=== PATIENT | female | born 1970 | race Caucasian/White ===

== ENCOUNTER 2023-03-16 22:47 | Emergency (ER) | payer OTHER, SELFPAY ==
[2023-03-16 22:53] VITALS: BP 126/80
[2023-03-16 23:19] LABS: % Basophils 0.5 % (0-2); % Eosinophils 0.7 % (0-6); % Immature Granulocytes 0.2 % (0-0.5); % Lymphocytes 42.5 % (20.5-51.1); % Neutrophils 49.1 % (42.2-75.2); Absolute Basophils 0.1 10^3/uL (0-0.2); Absolute Eosinophils 0.1 10^3/uL (0-0.7); Absolute Monocytes 0.7 10^3/uL (0.1-0.6); Absolute Neutrophils 4.6 10^3/uL (1.4-6.5); Hematocrit 37.9 % (37.0-47.0); Hemoglobin 13.3 g/dL (12.0-16.0); Mean Corp Hgb Conc. 35.1 g/dL (33.0-37.0); Mean Corpuscular Hgb 31.1 pg (27.0-31.0); Mean Corpuscular Volume 88.6 fL (81.0-99.0); Mean Platelet Volume 10.5 fL (7.4-10.4); Nucleated Red Blood Cells % 0 %; Platelet Count 260 10^3/uL (130-400); Red Blood Cell Count 4.28 10^6/uL (4.20-5.40); Red Cell Dist. Width 11.9 % (11.5-14.5); White Blood Cell Count 9.4 10^3/uL (4.8-10.8)
[2023-03-16 23:31] LABS: HCG, Serum Qualitative Screen Negative
[2023-03-16 23:37] LABS: ALT (SGPT) 14 U/L (0-35); AST (SGOT) 21 U/L (14-36); Albumin 4.5 g/dl (3.5-5.0); Alkaline Phosphatase 88 U/L (38-126); Blood Urea Nitrogen 13 mg/dl (7-17); Calcium 9.5 mg/dl (8.4-10.2); Carbon Dioxide 31 mmol/L (22-30); Chloride 102 mmol/L (98-107); Glucose 121 mg/dl (70-99); Potassium 3.8 mmol/L (3.5-5.1); Sodium 136 mmol/L (135-145); Total Bilirubin 0.7 mg/dl (0.2-1.3); Total Protein 7.3 g/dl (6.3-8.2); eGFR > 60.00
[2023-03-16 23:43] LABS: Troponin I < 0.012 ng/ml
[2023-03-17 02:37] VITALS: BP 116/75
[2023-03-17 02:43] VITALS: BMI 27.3
[2023-03-17 03:00] VITALS: BP 111/79
--- NOTE | 2023-03-17 03:12 | ED.GENMED ---
History of Present Illness
General
Chief Complaint: Blood Pressure Problem
Source: patient
Exam Limitations: none
Time Seen by Provider: 03/17/23 02:58
Travel History
Have you had any contact with someone who has COVID-19?: No
Do you have any symptoms of coronavirus? Fever > 100 degrees, chills, cough, shortness of breath, sore throat, loss of taste or smell, muscle aches, or headache?: No
History of Present Illness
History of Present Illness:
This is a 52 year old female that comes in with multiple complaints. States that yesterday she felt sick. Sate that the room was swaying. States that they took her BP and it was 77/55. Patient then had some water and it came up to 120/77. States
that today her BP was 150/100. States that she was feeling off balance and nauseated. Sates that she did vomit once yesterday. Denies any fever, chills, chest pain, SOB, abd pain, diarrhea, headache, urinary burning.
Past History
Past History
ED Past Medical History: Other (Overactive bladder); Negative Asthma, HTN, Hypercholesterolemia or NIDDM
ED Past Surgical History: None
Social History
Tobacco: Non-smoker
Alcohol: None
Personal:
Living: with family
Review of Systems
Review of Systems
All Other Systems: ROS reviewed and negative except as documented in HPI and ROS
Constitutional: Reports no symptoms; Denies fever or chills
EENT: Reports no symptoms
Respiratory: Reports no symptoms; Denies cough or trouble breathing
Cardiac: Denies chest pain
ABD/GI: Reports nausea and vomiting (Once yesterday); Denies abdominal pain or diarrhea
: Reports no symptoms; Denies dysuria, frequency or urgency
Musculoskeletal: Reports no symptoms
Skin: Reports no symptoms
Neurological: Reports dizzy (Feels unbalanced); Denies headache
Psychiatric: Reports no symptoms
Phy Exam
General Physical Exam
General Presentation: well appearing and no apparent distress
General age: appears stated age
General Skin: warm and dry
General Habitus: normal
General Mental: alert
General Hydration: dry mucous membranes
ENT Exam
ENT Exam: TM's normal, pharynx normal and neck supple
Eye Exam
Eye Exam: EOMI
Cardiovascular Exam
Cardiovascular Exam: regular rate/rhythm, no edema, no murmur and normal peripheral pulses
Pulmonary Exam
Pulmonary Exam: lungs clear, no respiratory distress, no rales, chest non tender, no crackles, no rhonchi, no wheezing and no cough
Gastrointestinal Exam
Gastrointestinal Exam: normal bowel sounds, non tender, soft, no organomegaly, no pulsatile mass and non distended
Musculoskeletal Exam
Musculoskeletal Exam: full ROM and no edema
Skin Exam
Skin Exam: warm/dry, no rash and no petechia
Psychiatric Exam
Psychiatric Exam: normal mood/affect
Course
Orders/Labs/Results
Orders:
Orders
03/16/23 22:58
Electrocardiogram (*1) Urgent
Reason for Study: Vertigo / Dizzy
EKG- Treatment ONCE
Test Result ONCE
03/16/23 23:10
CMP [Comprehensive Metabolic Panel] Urgent
Complete Blood Count/With Diff Urgent
HCG, Serum Qualitative Screen Urgent
Troponin I Urgent
03/17/23 03:10
CT Head W/o Iv Contrast Urgent
Comment:
Reason For Exam: Unbalanced,
Orthostatic VS- Treatment ONCE
0.9% Sodium Chloride 1000 ml [Nss] 1,000 ml IV BOLUS
Abnormal Lab Results
03/16/23
23:10
MCH 31.1 H pg
(27.0-31.0)
MPV 10.5 H fL
(7.4-10.4)
Absolute Lymphs (auto) 4.0 H 10^3/uL
(1.2-3.4)
Absolute Monos (auto) 0.7 H 10^3/uL
(0.1-0.6)
Carbon Dioxide 31 H mmol/L
(22-30)
Glucose 121 H mg/dl
(70-99)
03/16/23 23:10
03/16/23 23:10
Glucose nonfasting. Troponin <0.012, HCG negative
Vital Signs
Initial and Last Documented VS:
Initial Vital Signs
Temp Pulse Resp BP Pulse Ox
97.8 F 74 18 126/80 98
03/16/23 22:53 03/16/23 22:53 03/16/23 22:53 03/16/23 22:53 03/16/23 22:53
Last Documented Vital Signs
Temp Pulse Resp BP Pulse Ox
97.8 F 65 15 111/79 97
03/16/23 22:53 03/17/23 03:15 03/17/23 03:15 03/17/23 03:00 03/17/23 03:15
MDM/Problems Addressed
Differential Diagnosis Includes:
Dehydration.
MDM/Problems Addressed:
This is a 52 year old female that comes in with c/o her BP going up and down and feeling unbalanced. States that this started yesterday.
Will check labs. Orthostatic vitals and get CT of head. Will give IV fluids.
Back into see patient. Patient states that she is feeling better. Explained that her blood work is normal along with the CT of her head. This may have been a combination of being upset over her brothers , Dehydrated and not eating. Explained
that her BP has been normal here. Patient to follow up with the family doctor. Patient to return with any concerns.
Chronic conditions affecting care:
NA
Acute Exacerbation and/or Progression of Chronic Illness:
NA
*Radiology
Radiology exam reviewed: radiology read reviewed (CT head night hawk- No hemorrhage or other acute intracranial abnormality. )
*Pulse Oximetry
Patient hypoxic: no
*EKG
Interpreted by ED Provider?: Yes
Heart Rate: 68
Rate: normal
Rhythm: sinus
[place]: normal axis
Interval: normal interval
QRS Pattern: normal QRS
Ischemia: no ischemia
*[employer] Interpretation
Rate: normal
Heart Rate: 64
Rhythm: sinus
*Critical Care Note
Total Time (30-74mins, 75-104mins- exclusive of procedures): Not Applicable
ED Attending Note
-
Portions of this chart may have been created with voice recognition software.� Occasional wrong word or��sound alike� substitutions may have occurred due to the inherent limitations of voice recognition software.
Discharge Plan
Departure
Patient Disposition: Home (Routine Discharge)
Date of Disposition: 03/17/23
Time of Disposition: 05:06
Patient with high blood pressure during this ER visit?: No
Condition: Good
Covid-19: Not Applicable
Discharge Problem:
Dehydration, Lightheadedness
Instructions: Dehydration, Adult (DC), Dizziness, Adult ED
Referrals:
PRIVATE,PHYSICIAN [Family Provider] -
Activity Restrictions/Additional Instructions:
As discussed, your blood work was normal along with the CT of the head. You may have been dehydrated and it was just to early to show up in the blood work. Please increase your water intake to 8-8oz glasses daily. Please eat a well balanced diet.
Follow up with the family doctor for recheck. IF YOU HAVE INCREASED DIZZINESS, OR YOU HAVE ANY OTHER CONCERNS PLEASE RETURN TO THE EMERGENCY ROOM
Interventions
Interventions:
*Risk Screen - Suicide Last Done: 03/16/23 22:53
*General Assessment Last Done: 03/17/23 02:31
*Neglect/Abuse Screening Last Done: 03/16/23 22:53
ED- Fall Risk Assessment Last Done: 03/17/23 02:31
*ED COVID-19 Vaccine History Last Done: 03/17/23 02:31
ED- Cardiac Assessment Last Done: 03/17/23 02:31
ED- Neurological Assessment Last Done: 03/17/23 02:31
ED-Psychological Assessment Last Done: 03/17/23 02:31
ED- Pulmonary Assessment Last Done: 03/17/23 02:31
[2023-03-17 03:34] VITALS: BP 114/79; BP 123/76; BP 132/84; PULSE 58; PULSE 59; PULSE 65
[2023-03-17] MEDS: NSS 1000 IV (03:40)
[2023-03-17 05:20] VITALS: BP 105/68
== END 2023-03-17 05:20 | disposition home or self-care (01) ==
LOC: EMR 22:47
PROVIDERS: EMERGENCY PHYSICIAN Emergency Medicine
DX: E86.0 Dehydration (principal); R42 Dizziness and giddiness
CPT/HCPCS: 99285; 96360; 70450; 80053; 84484; 84703; 85025; 93005

== ENCOUNTER → 2024-07-14 14:19 | Outpatient (REF) | payer OTHER, SELFPAY | LOC: WDC 14:19 | PROVIDERS: ATTENDING PHYSICIAN Physician Assistant Medical | DX: Z12.31 Encounter for screening mammogram for malignant neoplasm of breast (principal) | CPT/HCPCS: 77063; 77067 ==